=== PATIENT | female | born 1965 | race Caucasian/White ===

== ENCOUNTER 2016-04-17 17:09 | Emergency (ER) | payer OTHER ==
[~2016-04-17] VITALS: Ht 162.6 cm; Wt 68.9 kg
[2016-04-17 17:09] VITALS: BP 138/90
[~2016-04-17 17:09] MED LIST: CETI-233 PO; DIPH1TAB PO; OMEP10CA2 PO
== END 2016-04-17 18:22 | disposition home or self-care (01) ==
LOC: ER 17:15
DX: H92.02 Otalgia, left ear (principal)
CPT/HCPCS: A4606; Z7502; Z7610

== ENCOUNTER 2016-06-27 11:27 | Emergency (ER) | payer OTHER ==
[~2016-06-27] VITALS: Ht 162.6 cm; Wt 68.0 kg
[2016-06-27 11:33] VITALS: BP 145/98
[2016-06-27] MEDS ORDERED: IBUPROFEN 600 MG TABLET PO ONE ×2 (12:30→12:37)
[2016-06-27] MEDS ORDERED: SULFAMETH/TRIMETH 800/160 MG 1 UDTAB TABLET PO ONE ×2 (12:30→12:36)
[2016-06-27] MEDS ORDERED: CEPHALEXIN MONOHYDRATE 500 MG CAPSULE PO ONE ×2 (12:30→12:37)
[2016-06-27] MEDS ORDERED: BACI/NEOM/POLY B OINT PKT 1 UDPKT PACKET ONE (13:01)
== END 2016-06-27 13:06 | disposition home or self-care (01) ==
LOC: ER 11:28
DX: H00.036 Abscess of eyelid left eye, unspecified eyelid (principal); I10 Essential (primary) hypertension; B19.20 Unspecified viral hepatitis C without hepatic coma
CPT/HCPCS: A4606; Z7610